=== PATIENT | female | born 1960 | race African-American/Black ===

== ENCOUNTER 2017-02-19 00:14 | Emergency (ER) | payer OTHER ==
[~2017-02-19] VITALS: Ht 157.5 cm; Wt 110.2 kg
[~2017-02-19 00:14] MED LIST: ALLEGRA ALLERGY60 MG; COZAAR 50 MG TA50 M2 PO; GLUCOTROL5 MG PO; IBUPROFEN 600600 M1 PO; KLOR-CON 1010 MEQ PO; LASIX 20 MG TAB20 MG PO; MACROBID 100 M100 M1 PO; NAPROSYN500 MG PO; NORCO 5-325 TA1 EACH PO; NORVASC 5 MG TAB5 MG PO; NORVASC5 MG PO; ULTRAM 50MG TAB50 MG PO; ZANTAC 150MG T150 MG PO; ZESTRIL10 MG PO
[2017-02-19] MEDS ORDERED: CARVEDILOL6.25 MG (00:27)
[2017-02-19] MEDS ORDERED: METFORMIN HCL500 MG PO (00:27)
[2017-02-19] MEDS ORDERED: MUCINEX DM ER1 EACH PO (01:12)
[2017-02-19 01:25] VITALS: BP 185/72
== END 2017-02-19 01:28 | disposition home or self-care (01) ==
LOC: ER 00:14
DX: J06.9 Acute upper respiratory infection, unspecified (principal); I10 Essential (primary) hypertension; E11.9 Type 2 diabetes mellitus without complications; Z88.5 Allergy status to narcotic agent; Z88.8 Allergy status to other drugs, medicaments and biological substances